=== PATIENT | female | born 1995 | race Caucasian/White ===

== ENCOUNTER 2024-09-16 09:15 | Outpatient (CLI) | payer OTHER, SELFPAY ==
--- NOTE | 2024-09-16 09:15 | RT.EKG_ITS ---
APPROVED REPORT Exam: Resting ECG Reason for Exam: Heart palpitations Patient Location: O HR:73 bpm ECG Measurements Heart Rate 73 AXIS VA 156 P 47 QRSd 93 QRS 51 QT 370 T 31 QTc 408 Conclusion Sinus rhythm...normal P axis, V-rate 50- 99 Normal Electrocardiogram
== END 2024-09-16 09:16 | disposition home or self-care (01) ==
LOC: DI.CM 09:15
PROVIDERS: Visit Provider Physician Assistant
DX: R00.2 Palpitations (principal)
CPT/HCPCS: 93010